=== PATIENT | female | born 1960 | race Caucasian/White ===

== ENCOUNTER 2021-02-02 15:26 | Emergency (ER) | payer BC ==
--- NOTE | 2021-02-02 15:47 | EDM.PDOC ---
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 discomfort in mid foot only, ankle no pain - Related Data Allergies Allergy/AdvReac Type Severity Reaction Status Date / Time No Known Allergies Allergy Verified 02/02/21 16:08 Review of Systems - Review of Systems Review Of Systems: See Below Constitutional: Reports: No Symptoms Eyes: Reports: No Symptoms Ears: Reports: No Symptoms Nose: Reports: No Symptoms Mouth/Throat: Reports: No Symptoms Respiratory: Reports: No Symptoms Cardiovascular: Reports: No Symptoms GI/Abdominal: Reports: No Symptoms Genitourinary: Reports: No Symptoms Musculoskeletal: Reports: Foot Pain Skin: Reports: No Symptoms Neurological: Reports: No Symptoms Psychiatric: Reports: No Symptoms ED EXAM, GENERAL - Physical Exam Exam: See Below Exam Limited By: No Limitations General Appearance: Alert, WD/WN Respiratory/Chest: No Respiratory Distress Extremities: Normal Inspection, Normal Range of Motion, Other (L foot with no swell, no ecchymosis, 1+ tender at prox 1st MT and prox 3rd MT) Neurological: Alert, Oriented, CN II-XII Intact, No Motor/Sensory Deficits Psychiatric: Normal Affect, Normal Mood Skin Exam: Warm, Dry, Intact, Normal Color, No Rash Course - Vital Signs Last Recorded V/S: Last Vital Signs Temp 36.8 C 02/02/21 15:26 Pulse 94 02/02/21 15:26 Resp 18 02/02/21 15:26 BP 163/70 H 02/02/21 15:26 Pulse Ox 95 02/02/21 15:26 - Orders/Labs/Meds Orders: Active Orders 24 hr Category Date Time Status Foot Comp Min 3V Lt [CR] Stat Exams 02/02/21 15:33 Ordered - Re-Assessments/Exams Free Text/Narrative Re-Assessment/Exam: 02/02/21 16:39 XR neg per radiologist, should heal in 1-2 weeks without injury, may use crutches from dtr, says he has an Tahir wrap at home, agreed to f/u with PCP Departure - Departure Time of Disposition: 16:38 Disposition: Home, Self-Care 01 Condition: Good Clinical Impression: Sprain of foot, left - Discharge Information *PRESCRIPTION DRUG MONITORING PROGRAM REVIEWED*: Not Applicable *COPY OF PRESCRIPTION DRUG MONITORING REPORT IN PATIENT ADENIKE: Not Applicable Instructions: Foot Sprain Additional Instructions: Take ibuprofen 200 mg 4 tabs and acetaminophen 500 mg 2 tabs 3 times a day for 3-5 days. Use Tahir wrap for 5 days. Weight bear as tolerated. See your doctor in 5-6 days. Sepsis Event Note (ED) - Focused Exam Vital Signs: Vital Signs Temp Pulse Resp BP Pulse Ox 02/02/21 15:26 36.8 C 94 18 163/70 H 95 - My Orders Last 24 Hours: My Active Orders 02/02/21 15:33 Foot Comp Min 3V Lt [CR] Stat - Assessment/Plan Last 24 Hours: My Active Orders 02/02/21 15:33 Foot Comp Min 3V Lt [CR] Stat
== END 2021-02-02 16:45 | disposition home or self-care (01) ==
LOC: FB.ED 15:26
DX: S93.602A Unspecified sprain of left foot, initial encounter (principal); W10.9XXA Fall (on) (from) unspecified stairs and steps, initial encounter
CPT/HCPCS: 73630-LT; 99283

== ENCOUNTER 2021-09-25 16:29 | Emergency (ER) | payer BC ==
--- NOTE | 2021-09-25 16:47 | EDM.PDOC ---
ED HPI GENERAL MEDICAL PROBLEM - General Chief Complaint: Respiratory Problem Stated Complaint: COVID Time Seen by Provider: 09/25/21 16:40 Source of Information: Reports: Patient History Limitations: Reports: No Limitations - History of Present Illness INITIAL COMMENTS - FREE TEXT/NARRATIVE: 60-year-old female who presents to the emergency department via private vehicle with her complaining of progressive weakness, cough, shortness of breath and "just not feeling right". The patient reports cough, nasal congestion and sinus pressure beginning on the or 31 of August and the symptoms persisted with her cough, malaise and shortness of breath worsening on 09/16/2021. The patient also reports that she had headache and body aches associated with this that were quite severe she had extreme fatigue. 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 She was diagnosed with a sinus infection but also had a Covid test performed and came back positive. She has had worsening cough, worsening shortness of breath and progressively worsening weakness with her symptoms really worsening over the past few days. She also feels "out of it" and finds it hard to think and even remember things at times. She has had some nausea. She has had some posttussive emesis. She has had diarrhea daily but with only 2 loose stools today. She denies any dysuria and reports that she feels that she is urinating her "normal" amount. She also has been feeling hot and having chills over the past few days as well. She reports she has been drinking liquids well but has had no appetite and has really not eaten very much. He reports a diffuse aching in her abdomen that she rates as a 3/10. She also reports diffuse body aches that she rates as a 4/10. Her O2 saturation was 74% on room air when she presented to the emergency department today. The patient is unvaccinated against Covid. There are no other associated signs or symptoms. There are no other modifying factors. Onset: Other (Initial symptoms on 08/30/2021. Worsening symptoms on 09/16/2021. Covid test positive on 09/18/2021. Symptoms of progressively worsening weakness over the past few days with worsening cough and worse breathing.) Duration: Getting Worse Location: Reports: Abdomen Quality: Reports: Ache Severity: Moderate Improves with: Reports: None Worsens with: Reports: None Context: Reports: Other (As above.) Associated Symptoms: Reports: No Other Symptoms (Except as above.) Treatments PRIVATE EYE: Reports: Other (see below) (Nothing.) Generalized Pain Score (Numeric/FACES): 6 - Related Data Allergies Allergy/AdvReac Type Severity Reaction Status Date / Time No Known Allergies Allergy Verified 09/25/21 20:08 Home Meds: Home Meds Cefdinir 300 mg BID 09/25/21 [History] Losartan/Hydrochlorothiazide [Losartan-HCTZ 50-12.5 MG] 12.5 mg DAILY 09/25/21 [History] metFORMIN [Glucophage] 1,000 mg BID 09/25/21 [History] Past Medical History Cardiovascular History: Reports: Hypertension Gastrointestinal History: Reports: GERD 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 History: Endocrine/Metabolic History: Reports: Diabetes, Type II - Infectious Disease History Infectious Disease History: Reports: Chicken Pox, Measles - Past Surgical History GI Surgical History: Reports: Cholecystectomy Musculoskeletal Surgical History: Reports: Knee Replacement (Bilateral total knee replacements.) Social & Family History - Tobacco Use Tobacco Use Status *Q: Unknown Ever Used Tobacco (Nonsmoker.) - Caffeine Use Caffeine Use: Reports: Soda - Alcohol Use Alcohol Use History: No - Living Situation & Occupation Living situation: Reports: ED ROS GENERAL - Review of Systems Review Of Systems: See Below Constitutional: Reports: Fever, Chills, Malaise, Weakness, Fatigue HEENT: Reports: Sinus Problem, Other Respiratory: Reports: Shortness of Breath, Pleuritic Chest Pain (Some with cough.), Cough Cardiovascular: Reports: Chest Pain, Dyspnea on Exertion, Lightheadedness Endocrine: Reports: Fatigue GI/Abdominal: Reports: Abdominal Pain, Diarrhea, Nausea, Vomiting (Some posttussive emesis.) : Denies: Dysuria, Hematuria Musculoskeletal: Reports: Other (Generalized body aches.) Skin: Denies: Diaphoresis, Rash Neurological: Reports: Headache, Other (Feels "out of it".) Hematologic/Lymphatic: Denies: Easy Bleeding, Easy Bruising Immunologic: Reports: Other (Has not had the Covid vaccine.) ED EXAM, GENERAL - Physical Exam Exam: See Below Exam Limited By: No Limitations General Appearance: Alert, Moderate Distress (Appears uncomfortable. No overt respiratory distress.), Obese Eye Exam: Bilateral Eye: EOMI, Normal Inspection (Sclera are anicteric), Vision Changes Ears: Normal External Exam, Hearing Grossly Normal Ear Exam: Bilateral Ear: Auricle Normal Nose: No Blood, Nasal Drainage, Other (Mucosal edema diffusely.) Throat/Mouth: Normal Lips, Normal Voice, No Airway Compromise, Other (Dry mucous membranes.) Head: Atraumatic, Normocephalic Neck: Normal Inspection, Supple, Non-Tender, Full Range of Motion Respiratory/Chest: No Accessory Muscle Use, Chest Non-Tender, Rales (Scattered bilaterally.), Rhonchi (Scattered bilaterally.) Cardiovascular: Normal Peripheral Pulses, No Gallop, No Murmur, Tachycardia Peripheral Pulses: 2+: Radial (L), Radial (R) GI/Abdominal: Normal Bowel Sounds, Soft, No Mass, Tender (Mild diffuse tenderness.) Back Exam: Normal Inspection Extremities: Normal Inspection, Normal Range of Motion, Non-Tender, No Pedal Edema, Normal Capillary Refill Neurological: Alert, Oriented, CN II-XII Intact, No Motor/Sensory Deficits, Slow to Respond, Other (Answers questions appropriately but just seems to take a bit of time to do so.) Psychiatric: Depressed Mood, Flat Affect Skin Exam: Warm, Dry, Intact, Normal Color, No Rash #1 Interpretation EKG Date: 09/25/21 Time: 17:11 Rhythm: NSR Rate (Beats/Min): 102 [place]: LAD-Left [place] Deviation (Slight left axis.) P-Wave: Present QRS: Normal ST-T: Other (Poor R-wave progression.) QT: Normal Comparison: NA - No Prior EKG Course - Vital Signs Last Recorded V/S: Last Vital Signs Temp 37.8 C 09/25/21 18:30 Pulse 107 H 09/25/21 17:56 Resp 15 09/25/21 17:56 BP 145/75 H 09/25/21 17:56 Pulse Ox 91 L 09/25/21 17:57 - Orders/Labs/Meds Orders: Active Orders 24 hr Category Date Time Status Ang Chest [CT] Stat Exams 09/25/21 17:57 Taken Chest 1V Frontal [CR] Stat Exams 09/25/21 17:06 Taken CULTURE BLOOD [BC] Urgent Lab 09/25/21 17:15 Received CULTURE BLOOD [BC] Urgent Lab 09/25/21 17:22 Received Sodium Chloride 0.9% [Normal Saline] 1,000 ml Med 09/25/21 17:15 Active IV ASDIRECTED Sodium Chloride 0.9% [Saline Flush] Med 09/25/21 17:03 Active 10 ml FLUSH ASDIRECTED PRN Blood Culture x2 Reflex Set [OM.PC] Urgent Oth 09/25/21 17:03 Ordered Peripheral IV Insertion Adult [OM.PC] Routine Oth 09/25/21 17:03 Ordered EKG 12 Lead [EK] Routine Ther 09/25/21 17:03 Ordered Medication Orders Sodium Chloride (Normal Saline) 1,000 mls @ 125 mls/hr IV ASDIRECTED KRYSTAL Sodium Chloride (Sodium Chloride 0.9% 10 Ml Syringe) 10 ml FLUSH ASDIRECTED PRN PRN Reason: Keep Vein Open Last Admin: 09/25/21 17:20 Dose: 10 ml Documented by: MIMI Labs: Laboratory Tests 09/25/21 09/25/21 09/25/21 Range/Units 17:22 17:22 17:22 WBC 3.7 (3.0-10.3) x10-3/uL RBC 4.66 (3.60-5.20) x10(6)uL Hgb 13.8 (11.4-15.5) g/dL Hct 41.4 (34.2-48.2) % MCV 88.9 (76.7-100.5) fL MCH 29.6 (23.9-33.9) pg MCHC 33.3 (31.9-34.8) g/dL RDW 12.7 (12.3-16.5) % Plt Count 176 (151-488) x10(3)uL MPV 7.9 (7.1-12.4) fL Neut % (Auto) 78.0 H (30.8-76.2) % Lymph % (Auto) 12.8 L (18.4-52.1) % Howard % (Auto) 9.0 (4.4-15.7) % Eos % (Auto) 0.0 L (0.6-8.1) % Baso % (Auto) 0.2 (0.2-1.5) % Neut # (Auto) 2.9 (1.5-6.3) x10-3/uL Lymph # (Auto) 0.5 L (1.0-4.4) x10-3/uL Howard # (Auto) 0.3 (0.3-1.0) x10-3/uL Eos # (Auto) 0.0 (0.0-0.8) x10-3/uL Baso # (Auto) 0.0 (0.0-0.1) x10-3/uL D-Dimer, Quantitative (0.0-0.59) mg/LFEU POC VBG pH (7.32-7.43) pH Units POC VBG pCO2 (41-51) mmHg POC VBG HCO3 (22-29) mmol/L VBG Base Excess (-2 - 3+) mmol/L O2 Delivery Device Oxygen Flow Rate LPM Sodium 136 (135-145) mmol/L Potassium 3.7 (3.5-5.3) mmol/L Chloride 99 L (100-110) mmol/L Carbon Dioxide 30 (21-32) mmol/L BUN 17 (7-18) mg/dL Creatinine 1.2 H (0.55-1.02) mg/dL Est Cr Clr Drug Dosing 40.21 mL/min Estimated GFR (MDRD) 46 L (>60) BUN/Creatinine Ratio 14.2 (9-20) Glucose 162 H (80-116) mg/dL Lactic Acid (0.4-2.0) mmol/L Calcium 8.6 (8.6-10.2) mg/dL Magnesium 2.1 (1.8-2.5) mg/dL Total Bilirubin 0.5 (0.1-1.3) mg/dL AST 69 H (5-25) IU/L ALT 48 H (12-36) U/L Alkaline Phosphatase 66 (56-112) IU/L Troponin I 9.4 (4.0-60.3) pg/mL C-Reactive Protein 9.6 H* (0.5-0.9) mg/dL Total Protein 7.5 (6.0-8.0) g/dL Albumin 3.0 L (3.2-4.6) g/dL Globulin 4.5 g/dL Albumin/Globulin Ratio 0.7 Urine Color (YELLOW) Urine Appearance (CLEAR) Urine pH (5.0-6.5) Ur Specific Purdy (1.010-1.025) Urine Protein (NEGATIVE) mg/dL Urine Glucose (UA) (NORMAL) mg/dL Urine Ketones (NEGATIVE) mg/dL Urine Occult Blood (NEGATIVE) Urine Nitrite (NEGATIVE) Urine Bilirubin (NEGATIVE) Urine Urobilinogen (NEGATIVE) mg/dL Ur Leukocyte Esterase (NEGATIVE) Urine RBC (0-5) Urine WBC (0-5) Ur Squamous Epith Cells (NS,R,O) Urine Bacteria (NS) 09/25/21 09/25/21 09/25/21 Range/Units 17:22 17:22 17:35 WBC (3.0-10.3) x10-3/uL RBC (3.60-5.20) x10(6)uL Hgb (11.4-15.5) g/dL Hct (34.2-48.2) % MCV (76.7-100.5) fL MCH (23.9-33.9) pg MCHC (31.9-34.8) g/dL RDW (12.3-16.5) % Plt Count (151-488) x10(3)uL MPV (7.1-12.4) fL Neut % (Auto) (30.8-76.2) % Lymph % (Auto) (18.4-52.1) % Howard % (Auto) (4.4-15.7) % Eos % (Auto) (0.6-8.1) % Baso % (Auto) (0.2-1.5) % Neut # (Auto) (1.5-6.3) x10-3/uL Lymph # (Auto) (1.0-4.4) x10-3/uL Howard # (Auto) (0.3-1.0) x10-3/uL Eos # (Auto) (0.0-0.8) x10-3/uL Baso # (Auto) (0.0-0.1) x10-3/uL D-Dimer, Quantitative 1.27 H (0.0-0.59) mg/LFEU POC VBG pH 7.46 H (7.32-7.43) pH Units POC VBG pCO2 36 L (41-51) mmHg POC VBG HCO3 25 (22-29) mmol/L VBG Base Excess 2 (-2 - 3+) mmol/L O2 Delivery Device Nasal cannula Oxygen Flow Rate 6 LPM Sodium (135-145) mmol/L Potassium (3.5-5.3) mmol/L Chloride (100-110) mmol/L Carbon Dioxide (21-32) mmol/L BUN (7-18) mg/dL Creatinine (0.55-1.02) mg/dL Est Cr Clr Drug Dosing mL/min Estimated GFR (MDRD) (>60) BUN/Creatinine Ratio (9-20) Glucose (80-116) mg/dL Lactic Acid 1.9 (0.4-2.0) mmol/L Calcium (8.6-10.2) mg/dL Magnesium (1.8-2.5) mg/dL Total Bilirubin (0.1-1.3) mg/dL AST (5-25) IU/L ALT (12-36) U/L Alkaline Phosphatase (56-112) IU/L Troponin I (4.0-60.3) pg/mL C-Reactive Protein (0.5-0.9) mg/dL Total Protein (6.0-8.0) g/dL Albumin (3.2-4.6) g/dL Globulin g/dL Albumin/Globulin Ratio Urine Color (YELLOW) Urine Appearance (CLEAR) Urine pH (5.0-6.5) Ur Specific Purdy (1.010-1.025) Urine Protein (NEGATIVE) mg/dL Urine Glucose (UA) (NORMAL) mg/dL Urine Ketones (NEGATIVE) mg/dL Urine Occult Blood (NEGATIVE) Urine Nitrite (NEGATIVE) Urine Bilirubin (NEGATIVE) Urine Urobilinogen (NEGATIVE) mg/dL Ur Leukocyte Esterase (NEGATIVE) Urine RBC (0-5) Urine WBC (0-5) Ur Squamous Epith Cells (NS,R,O) Urine Bacteria (NS) 09/25/21 Range/Units 19:40 WBC (3.0-10.3) x10-3/uL RBC (3.60-5.20) x10(6)uL Hgb (11.4-15.5) g/dL Hct (34.2-48.2) % MCV (76.7-100.5) fL MCH (23.9-33.9) pg MCHC (31.9-34.8) g/dL RDW (12.3-16.5) % Plt Count (151-488) x10(3)uL MPV (7.1-12.4) fL Neut % (Auto) (30.8-76.2) % Lymph % (Auto) (18.4-52.1) % Howard % (Auto) (4.4-15.7) % Eos % (Auto) (0.6-8.1) % Baso % (Auto) (0.2-1.5) % Neut # (Auto) (1.5-6.3) x10-3/uL Lymph # (Auto) (1.0-4.4) x10-3/uL Howard # (Auto) (0.3-1.0) x10-3/uL Eos # (Auto) (0.0-0.8) x10-3/uL Baso # (Auto) (0.0-0.1) x10-3/uL D-Dimer, Quantitative (0.0-0.59) mg/LFEU POC VBG pH (7.32-7.43) pH Units POC VBG pCO2 (41-51) mmHg POC VBG HCO3 (22-29) mmol/L VBG Base Excess (-2 - 3+) mmol/L O2 Delivery Device Oxygen Flow Rate LPM Sodium (135-145) mmol/L Potassium (3.5-5.3) mmol/L Chloride (100-110) mmol/L Carbon Dioxide (21-32) mmol/L BUN (7-18) mg/dL Creatinine (0.55-1.02) mg/dL Est Cr Clr Drug Dosing mL/min Estimated GFR (MDRD) (>60) BUN/Creatinine Ratio (9-20) Glucose (80-116) mg/dL Lactic Acid (0.4-2.0) mmol/L Calcium (8.6-10.2) mg/dL Magnesium (1.8-2.5) mg/dL Total Bilirubin (0.1-1.3) mg/dL AST (5-25) IU/L ALT (12-36) U/L Alkaline Phosphatase (56-112) IU/L Troponin I (4.0-60.3) pg/mL C-Reactive Protein (0.5-0.9) mg/dL Total Protein (6.0-8.0) g/dL Albumin (3.2-4.6) g/dL Globulin g/dL Albumin/Globulin Ratio Urine Color Yellow (YELLOW) Urine Appearance Slightly cloudy (CLEAR) Urine pH 6.5 (5.0-6.5) Ur Specific Purdy 1.000 L (1.010-1.025) Urine Protein 30 H (NEGATIVE) mg/dL Urine Glucose (UA) Normal (NORMAL) mg/dL Urine Ketones Negative (NEGATIVE) mg/dL Urine Occult Blood Trace (NEGATIVE) Urine Nitrite Negative (NEGATIVE) Urine Bilirubin Negative (NEGATIVE) Urine Urobilinogen Normal (NEGATIVE) mg/dL Ur Leukocyte Esterase Small H (NEGATIVE) Urine RBC 0-5 (0-5) Urine WBC 0-5 (0-5) Ur Squamous Epith Cells Moderate H (NS,R,O) Urine Bacteria Few H (NS) Meds: Medications Generic Name Dose Route Start Last Admin Trade Name Freq PRN Reason Stop Dose Admin Sodium Chloride 1,000 mls @ 125 mls/hr 09/25/21 17:15 Normal Saline IV ASDIRECTED KRYSTAL Sodium Chloride 10 ml 09/25/21 17:03 09/25/21 17:20 Sodium Chloride 0.9% 10 Ml Syringe FLUSH 10 ml ASDIRECTED PRN Administration Keep Vein Open Discontinued Medications Generic Name Dose Route Start Last Admin Trade Name Freq PRN Reason Stop Dose Admin Acetaminophen 1,000 mg 09/25/21 17:57 09/25/21 18:00 Acetaminophen 500 Mg Tab PO 09/25/21 17:58 1,000 mg ONETIME ONE Administration Ceftriaxone Sodium 2 gm 09/25/21 18:55 09/25/21 19:06 Ceftriaxone 2 Gm Vial IVPUSH 09/25/21 18:56 2 gm ONETIME ONE Administration Dexamethasone 6 mg 09/25/21 18:55 09/25/21 19:07 Dexamethasone 4 Mg/Ml Sdv IVPUSH 09/25/21 18:56 6 mg ONETIME ONE Administration Dexamethasone Confirm 09/25/21 19:09 09/25/21 19:15 Dexamethasone 4 Mg/Ml Sdv Administered 09/25/21 19:10 Not Given Dose 4 mg .ROUTE .STK-MED ONE Sodium Chloride 1,000 mls @ 999 mls/hr 09/25/21 17:06 09/25/21 17:20 Normal Saline IV 09/25/21 18:06 999 mls/hr .BOLUS ONE Administration Sodium Chloride 1,000 mls @ 999 mls/hr 09/25/21 18:54 09/25/21 18:59 Normal Saline IV 09/25/21 19:54 999 mls/hr .BOLUS ONE Administration Azithromycin 500 mg/ Sodium 250 mls @ 250 mls/hr 09/25/21 18:55 09/25/21 19:06 Chloride IV 09/25/21 19:54 250 mls/hr ONETIME ONE Administration Iopamidol 85 ml 09/25/21 18:00 09/25/21 18:42 Iopamidol 755 Mg/Ml 100 Ml Bottle IV 09/25/21 18:01 85 ml . DIRECTED ONE Administration Iopamidol 75 ml 09/25/21 18:42 09/25/21 18:43 Iopamidol 755 Mg/Ml 75 Ml Bottle IV 09/25/21 18:43 75 ml ONETIME ONE Administration - Radiology Interpretation Free Text/Narrative:: Portable chest x-ray shows bilateral scattered infiltrates in a pattern consistent with Covid 19 infection per my read. CTA of the chest showed moderate to severe coronavirus pneumonia with reactive lymph nodes but there was no evidence of pulmonary embolus. There is hepatomegaly and hepatic steatosis. There is a moderately enlarged right thyroid lobe noted incidentally. This will need follow-up with ultrasound on an outpatient basis within the patient is clinically stable. This was per the [facility] radiologist. - Re-Assessments/Exams Free Text/Narrative Re-Assessment/Exam: 09/25/21 18:00: The patient got up to go to the bathroom to get us a urine and her O2 saturations dipped to 71% on room air at that time. Back in the room and on 6 L/m via nasal cannula she is up to 91-93% quickly. Her pulse and blood pressure have remained stable. She does not appear to be in any more respiratory distress then presentation. White blood cell count was 3.7. Hemoglobin was 13.8. Platelet count 176K. sodium is 137. Potassium is 3.7. Bicarbonate is 30. BUN is 17 and creatinine is 1.2. Glucose is 162. A venous pH was 7.46 and a venous PCO2 was 36. A medium is 2.1. AST is 69 and ALT is 48 area CRP was 9.6. Troponin is 9.4. EKG shows a sinus rhythm with poor R-wave progression but no acute current of injury or ischemia present. The d-dimer was 1.27. With the patient's hypoxia, or Covid 19 infection and the elevated d-dimer I will send the patient for CTA of the chest to further assess for potential pulmonary emboli. This patient will need salgado. She is quite hypoxic and at the ten-day catie that is often associated with decompensations which are sometimes rapid they feel that the level of care needed for this patient is greater than can be provided at [facility] at this time. I have ordered blood cultures 2 sets. After the CTA of the chest, I will give the patient Rocephin and Zith romax IV. I will also discussed the patient's case with the doctors at [facility] in [place] and elsewhere if needed attempt to find a hospital with the level of care that this patient would need. 09/25/21 19:35: The CTA of the chest showed bilateral infiltrates that were consistent with moderate to severe Covid pneumonia. There was no PE. I called and discussed the patient with the transfer nurse at [facility] in [place] and she will have to discuss the patient's case with the doctor on duty to see if the patient can be accepted to their hospital. She will call him back with this. 09/25/21 19:55: I discussed the patient's case with Dr. Kilgore, hospitalist at [facility] in [place], and he has agreed to accept the patient in transfer. The patient will need to be transferred via ALS ambulance to [facility] for direct admission. 09/25/21 20:00: I discussed all this with the patient and with the patient's and they are in agreement with this plan. I also discussed CODE STATUS with the patient and she is a FULL CODE. Departure - Departure Time of Disposition: 20:55 Disposition: DC/Tfer to Acute Hospital 02 Condition: Fair (Guarded) Clinical Impression: Pneumonia due to COVID-19 virus, Dehydration, Encephalopathy due to 2019 novel coronavirus Respiratory failure with hypoxia Qualifiers: Chronicity: acute Qualified Code(s): J96.01 - Acute respiratory failure with hypoxia - Discharge Information Referrals: Francisca Wolfe PA [Primary Care Provider] - Forms: ED Department Discharge Sepsis Event Note (ED) - Evaluation Sepsis Screening Result: No Definite Risk - Focused Exam Vital Signs: Vital Signs Temp Temp Pulse Resp BP Pulse Ox Pulse Ox 09/25/21 18:30 37.8 C 09/25/21 18:00 37.8 C 09/25/21 17:57 91 L 09/25/21 17:56 37.8 C 107 H 15 145/75 H 91 L 09/25/21 17:23 102 H 15 113/53 L 92 L 09/25/21 16:56 106 H 16 147/64 H 92 L 09/25/21 16:30 37.7 C 110 H 20 132/62 74 L - My Orders Last 24 Hours: My Active Orders 09/25/21 17:03 Sodium Chloride 0.9% [Saline Flush] 10 ml FLUSH ASDIRECTED PRN Blood Culture x2 Reflex Set [OM.PC] Urgent Peripheral IV Insertion Adult [OM.PC] Routine EKG 12 Lead [EK] Routine 09/25/21 17:06 Chest 1V Frontal [CR] Stat 09/25/21 17:15 CULTURE BLOOD [BC] Urgent Sodium Chloride 0.9% [Normal Saline] 1,000 ml IV ASDIRECTED 09/25/21 17:22 CULTURE BLOOD [BC] Urgent 09/25/21 17:57 Ang Chest [CT] Stat - Assessment/Plan Last 24 Hours: My Active Orders 09/25/21 17:03 Sodium Chloride 0.9% [Saline Flush] 10 ml FLUSH ASDIRECTED PRN Blood Culture x2 Reflex Set [OM.PC] Urgent Peripheral IV Insertion Adult [OM.PC] Routine EKG 12 Lead [EK] Routine 09/25/21 17:06 Chest 1V Frontal [CR] Stat 09/25/21 17:15 CULTURE BLOOD [BC] Urgent Sodium Chloride 0.9% [Normal Saline] 1,000 ml IV ASDIRECTED 09/25/21 17:22 CULTURE BLOOD [BC] Urgent 09/25/21 17:57 Ang Chest [CT] Stat
[2021-09-25] MEDS ORDERED: Sodium Chloride 0.9% 10 ML Syringe FLUSH PRN (17:03)
[2021-09-25] MEDS ORDERED: Sodium Chloride 0.9% 1,000 ML IV ONE ×2 (17:06→18:54)
[2021-09-25] MEDS ORDERED: Sodium Chloride 0.9% 1,000 ML IV SCH (17:15)
[2021-09-25 17:38] LABS: BASE EXCESS VENOUS,POC 2 mmol/L (-2 - 3+); PCO2 VENOUS,POC 36 mmHg (41-51); PH VENOUS,POC 7.46 pH Units (7.32-7.43)
[2021-09-25] MEDS ORDERED: Acetaminophen 500 MG Tab PO ONE (17:57)
[2021-09-25] MEDS ORDERED: Iopamidol 755 Mg/ML 100 ML Bottle IV ONE (18:00)
[2021-09-25] MEDS ORDERED: Iopamidol 755 Mg/ML 75 ML Bottle IV ONE (18:42)
[2021-09-25] MEDS ORDERED: Dexamethasone 4 MG/ML SDV IVPUSH ONE (18:55)
[2021-09-25] MEDS ORDERED: cefTRIAXone 2 GM Vial IVPUSH ONE (18:55)
[2021-09-25] MEDS ORDERED: Azithromycin 500 MG in Sodium Chloride 0.9% 250 ML IV ONE (18:55)
[2021-09-25] MEDS ORDERED: Dexamethasone 4 MG/ML SDV ONE (19:09)
== END 2021-09-25 21:00 ==
LOC: FB.ED 16:29
DX: U07.1 COVID-19 (principal); J12.82 Pneumonia due to coronavirus disease 2019; G93.40 Encephalopathy, unspecified; J96.01 Acute respiratory failure with hypoxia; E86.0 Dehydration; I10 Essential (primary) hypertension; K21.9 Gastro-esophageal reflux disease without esophagitis; E11.9 Type 2 diabetes mellitus without complications; Z79.84 Long term (current) use of oral hypoglycemic drugs; Z79.899 Other long term (current) drug therapy
CPT/HCPCS: 36415; 71045; 71275; 80053; 81001; 83605; 83735; 84484; 85025; 85379; 86140; 87040; 93005; 96365; 96366; 96375; 99285-25; A9270-GY; J0456; J0696; J1100; J7030; J7050; Q9967